=== PATIENT | male | born 1975 | race Caucasian/White ===

== ENCOUNTER 2024-03-17 11:14 | Inpatient (IN) | payer OTHER ==
[2024-03-17 11:27] VITALS: BMI 20.2
[2024-03-17 15:04] LABS: BASO % 1.2 % (0-2.0); EOS % 0.8 % (0-4.5); HEMATOCRIT 18.9 % (35.4-49); LYMPH % 15.2 % (8-40); MCH 28.2 pg (25.7-33.7); MCHC 33.1 g/dl (32.0-35.9); MEAN CELL VOLUME 85.3 fl (80-96); MEAN PLT VOLUME 6.9 fl (7.5-11.1); MONO % 6.6 % (3.8-10.2); NEUT % 76.2 % (42.8-82.8); PLATELET COUNT 656 10^3/uL (134-434); RBC 2.22 M/mm3 (4.00-5.60); RDW 16.8 % (11.9-15.9)
[2024-03-17 15:09] LABS: VENOUS BASE EXCESS -2.4 mmol/L (-2-2); VENOUS O2 SATURATION 17.1 % (70-80); VENOUS PCO2 31.3 mmHg (38-52); VENOUS PH 7.455 (7.310-7.410)
[2024-03-17 15:11] LABS: INR 1.18 (0.83-1.09); PROTHROMBIN TIME (PATIENT) 13.5 SEC (9.7-13.0)
[2024-03-17 15:12] LABS: HEMOGLOBIN 6.3 GM/dL (11.7-16.9)
[2024-03-17 15:14] LABS: ACTIVATED PTT 25.5 SECONDS (25.2-36.5)
[2024-03-17 15:19] LABS: POTASSIUM 4.3 mmol/L (3.5-5.1)
[2024-03-17 15:21] LABS: CALCIUM 8.4 mg/dL (8.5-10.1)
[2024-03-17 15:22] LABS: ALBUMIN 2.8 g/dl (3.4-5.0); BLOOD UREA NITROGEN 17.5 mg/dL (7-18); MAGNESIUM 2.7 mg/dL (1.8-2.4)
[2024-03-17 15:25] LABS: CREATININE 1.1 mg/dL (0.55-1.3)
[2024-03-17 15:26] LABS: BILIRUBIN,TOTAL 1.4 mg/dL (0.2-1); TOT PROT 7.1 g/dl (6.4-8.2)
[2024-03-17 15:29] LABS: N-TERMINAL BNP 282.2 pg/ml (5-125)
[2024-03-17] MEDS ORDERED: ACETAMINOPHEN 500 MG TABLET (FP) ONE (18:20)
[2024-03-17] MEDS: ACETAMINOPHEN 500 MG TABLET (FP) PO ONE (18:24)
[2024-03-17 19:26] LABS: PH,URINE 5.5 (5.0-8.0); URINE APPEARANCE CLEAR; URINE BILIRUBIN NEGATIVE (NEGATIVE); URINE COLOR DK YELLOW; URINE GLUCOSE (UA) TRACE (NEGATIVE); URINE KETONE NEGATIVE (NEGATIVE); URINE LEUK ESTERASE NEGATIVE (NEGATIVE); URINE NITRITE NEGATIVE (NEGATIVE); URINE PROTEIN NEGATIVE (NEGATIVE)
[2024-03-18 00:10] LABS: BILIRUBIN,DIRECT 0.4 mg/dL (0.0-0.2)
[2024-03-18] MEDS: POLYETHYLENE GLYCOL (HEALTHYLAX) 3350 17 GM PACKET PO SCH (01:42)
[2024-03-18] MEDS: LACTATED RINGERS SOLUTION 1,000 ML/1,000 ML INFUS.BAG IV SCH (01:42)
[2024-03-18] MEDS ORDERED: ACETAMINOPHEN 1000 MG/100 ML BAG IVPB PRN (01:58)
[2024-03-18] MEDS: MINERAL OIL ENEMA 133 ML ENEMA RC ONE (02:57)
[2024-03-18 09:47] LABS: EOS % 2.8 % (0-4.5); HEMATOCRIT 22.1 % (35.4-49); HEMOGLOBIN 7.5 GM/dL (11.7-16.9); LYMPH % 20.2 % (8-40); MCH 28.7 pg (25.7-33.7); MCHC 33.8 g/dl (32.0-35.9); MEAN CELL VOLUME 84.9 fl (80-96); MEAN PLT VOLUME 6.9 fl (7.5-11.1); MONO % 5.8 % (3.8-10.2); NEUT % 69.8 % (42.8-82.8); PLATELET COUNT 533 10^3/uL (134-434); RDW 16.4 % (11.9-15.9); WHITE BLOOD COUNT 5.3 K/mm3 (4.0-10.0)
[2024-03-18 09:48] LABS: BASO % 1.4 % (0-2.0)
[2024-03-18] MEDS ORDERED: CEFTRIAXONE 1 GM in DEXTROSE 5%-WATER - 50 ML IVPB SCH (10:00)
[2024-03-18 10:02] LABS: RETICULOCYTES 7.93 % (0.5-1.5)
[2024-03-18 10:07] LABS: POTASSIUM 4.3 mmol/L (3.5-5.1)
[2024-03-18 10:21] LABS: BLOOD UREA NITROGEN 16.6 mg/dL (7-18)
[2024-03-18 10:22] LABS: ALBUMIN 2.6 g/dl (3.4-5.0)
[2024-03-18 10:23] LABS: CALCIUM 8.1 mg/dL (8.5-10.1); MAGNESIUM 2.7 mg/dL (1.8-2.4)
[2024-03-18 10:24] LABS: PHOSPHOROUS 2.7 mg/dL (2.5-4.9)
[2024-03-18 10:26] LABS: BILIRUBIN,TOTAL 1.9 mg/dL (0.2-1)
[2024-03-18 10:27] LABS: CREATININE 0.9 mg/dL (0.55-1.3)
[2024-03-18 10:32] LABS: TOT PROT 6.6 g/dl (6.4-8.2)
[2024-03-18] MEDS: TAMSULOSIN HCL 0.4 MG CAP PO SCH (11:50)
[2024-03-18] MEDS: MINERAL OIL ENEMA 133 ML ENEMA RC SCH (11:50)
[2024-03-18] MEDS: CEFTRIAXONE 1 GM in DEXTROSE 5%-WATER - 50 ML IVPB SCH (13:01)
[2024-03-18] MEDS: CEFAZOLIN SODIUM 2 GM in DEXTROSE 5%-WATER 100 ML IVPB SCH (13:02)
[2024-03-18 13:23] LABS: BILIRUBIN,DIRECT 0.4 mg/dL (0.0-0.2)
[2024-03-18] MEDS: MAGNESIUM CITRATE 300 ML BOTTLE PO ONE (13:28)
[2024-03-18 19:23] LABS: EPI CELLS 8 /uL (0-25.1); HYALINE CASTS 1 /uL (0-3.1); URINE APPEARANCE CLEAR; URINE BACTERIA 10 /uL (0-1359); URINE BILIRUBIN NEGATIVE (NEGATIVE); URINE COLOR DK YELLOW; URINE GLUCOSE (UA) TRACE (NEGATIVE); URINE KETONE TRACE (NEGATIVE); URINE LEUK ESTERASE NEGATIVE (NEGATIVE); URINE NITRITE NEGATIVE (NEGATIVE); URINE PROTEIN 1+ (NEGATIVE); URINE RBC 256 /uL (0-23.9); URINE WBC 20 /uL (0-25.8)
[2024-03-19 09:26] LABS: HEMATOCRIT 20.7 % (35.4-49); MCH 28.1 pg (25.7-33.7); MCHC 32.7 g/dl (32.0-35.9); MEAN CELL VOLUME 85.7 fl (80-96); MEAN PLT VOLUME 7.1 fl (7.5-11.1); PLATELET COUNT 489 10^3/uL (134-434); RBC 2.42 M/mm3 (4.00-5.60); RDW 16.6 % (11.9-15.9); WHITE BLOOD COUNT 5.9 K/mm3 (4.0-10.0)
[2024-03-19 09:43] LABS: HEMOGLOBIN 6.8 GM/dL (11.7-16.9)
[2024-03-19 09:54] LABS: POTASSIUM 4.6 mmol/L (3.5-5.1)
[2024-03-19 09:57] LABS: BILIRUBIN,DIRECT 0.3 mg/dL (0.0-0.2)
[2024-03-19 09:59] LABS: ALBUMIN 2.5 g/dl (3.4-5.0); BLOOD UREA NITROGEN 18.1 mg/dL (7-18); CALCIUM 7.9 mg/dL (8.5-10.1)
[2024-03-19 10:03] LABS: TOT PROT 6.3 g/dl (6.4-8.2)
[2024-03-19 14:22] LABS: ANISOCYTOSIS 0; MACROCYTOSIS 0
[2024-03-20 09:59] LABS: HEMATOCRIT 25.3 % (35.4-49); HEMOGLOBIN 8.5 GM/dL (11.7-16.9); MCHC 33.5 g/dl (32.0-35.9); MEAN CELL VOLUME 86.7 fl (80-96); MEAN PLT VOLUME 6.9 fl (7.5-11.1); PLATELET COUNT 457 10^3/uL (134-434); RBC 2.92 M/mm3 (4.00-5.60); RDW 16.2 % (11.9-15.9); WHITE BLOOD COUNT 5.1 K/mm3 (4.0-10.0)
[2024-03-20 10:48] LABS: ALBUMIN 2.6 g/dl (3.4-5.0); BLOOD UREA NITROGEN 13.8 mg/dL (7-18); CALCIUM 8.4 mg/dL (8.5-10.1)
[2024-03-20 10:54] LABS: BILIRUBIN,TOTAL 1.2 mg/dL (0.2-1); TOT PROT 6.7 g/dl (6.4-8.2)
[2024-03-20] MEDS: IRON SUCROSE INJECTION 200 MG in SODIUM CHLORIDE 100 ML IVPB ONE (14:05)
[2024-03-21 09:38] LABS: HEMATOCRIT 27.5 % (35.4-49); HEMOGLOBIN 9.2 GM/dL (11.7-16.9); MCH 29.4 pg (25.7-33.7); MCHC 33.4 g/dl (32.0-35.9); MEAN CELL VOLUME 87.9 fl (80-96); MEAN PLT VOLUME 6.8 fl (7.5-11.1); PLATELET COUNT 453 10^3/uL (134-434); RBC 3.13 M/mm3 (4.00-5.60); RDW 16.8 % (11.9-15.9); WHITE BLOOD COUNT 4.2 K/mm3 (4.0-10.0)
[2024-03-21 09:43] LABS: INR 1.1 (0.83-1.09); PROTHROMBIN TIME (PATIENT) 12.6 SEC (9.7-13.0)
[2024-03-21 09:46] LABS: ACTIVATED PTT 27.1 SECONDS (25.2-36.5)
[2024-03-21 10:04] LABS: CALCIUM 8.2 mg/dL (8.5-10.1)
[2024-03-21 10:05] LABS: ALBUMIN 2.6 g/dl (3.4-5.0); BLOOD UREA NITROGEN 11.7 mg/dL (7-18)
[2024-03-21 10:08] LABS: CREATININE 0.9 mg/dL (0.55-1.3)
[2024-03-21 10:10] LABS: BILIRUBIN,TOTAL 1.4 mg/dL (0.2-1); TOT PROT 6.5 g/dl (6.4-8.2)
[2024-03-22 08:59] LABS: HEMATOCRIT 27.5 % (35.4-49); HEMOGLOBIN 9.2 GM/dL (11.7-16.9); MCH 30.1 pg (25.7-33.7); MCHC 33.6 g/dl (32.0-35.9); MEAN CELL VOLUME 89.5 fl (80-96); MEAN PLT VOLUME 6.7 fl (7.5-11.1); PLATELET COUNT 472 10^3/uL (134-434); RBC 3.07 M/mm3 (4.00-5.60); RDW 17.8 % (11.9-15.9); WHITE BLOOD COUNT 4.5 K/mm3 (4.0-10.0)
[2024-03-22 09:20] LABS: POTASSIUM 4.1 mmol/L (3.5-5.1)
[2024-03-22 09:28] LABS: CREATININE 0.9 mg/dL (0.55-1.3)
[2024-03-22 09:29] LABS: ALBUMIN 2.7 g/dl (3.4-5.0); BLOOD UREA NITROGEN 13.8 mg/dL (7-18)
[2024-03-22 09:31] LABS: BILIRUBIN,TOTAL 1.1 mg/dL (0.2-1); TOT PROT 6.5 g/dl (6.4-8.2)
[2024-03-22 09:32] LABS: CALCIUM 8.5 mg/dL (8.5-10.1)
[2024-03-22 09:33] LABS: BILIRUBIN,DIRECT 0.3 mg/dL (0.0-0.2)
[2024-03-22] MEDS: SENNOSIDES 8.8 MG/5 ML SYRUP PO ONE (11:35)
[2024-03-22 17:09] LABS: FREE KAPPA,SERUM 47.1 mg/L (3.3-19.4)
[2024-03-22] MEDS: SENNOSIDES 8.8 MG/5 ML SYRUP PO SCH (23:33)
[2024-03-23] MEDS: BISACODYL 5 MG TABLET.DR (FP) PO ONE (17:01)
[2024-03-23] MEDS: PEG 3350/NA SULF BICARB CL/KCL 4000 ML SOLN.RECON PO ONE (17:47)
[2024-03-24 09:00] LABS: HEMOGLOBIN 9.7 GM/dL (11.7-16.9); MCHC 33.3 g/dl (32.0-35.9); MEAN CELL VOLUME 90.1 fl (80-96); MEAN PLT VOLUME 6.6 fl (7.5-11.1); PLATELET COUNT 434 10^3/uL (134-434); RBC 3.22 M/mm3 (4.00-5.60); RDW 19.5 % (11.9-15.9); WHITE BLOOD COUNT 5.2 K/mm3 (4.0-10.0)
[2024-03-24 09:11] LABS: INR 1.21 (0.83-1.09); PROTHROMBIN TIME (PATIENT) 13.6 SEC (9.7-13.0)
[2024-03-24 09:26] LABS: POTASSIUM 3.9 mmol/L (3.5-5.1)
[2024-03-24 09:29] LABS: ALBUMIN 2.7 g/dl (3.4-5.0); BLOOD UREA NITROGEN 13.3 mg/dL (7-18); CALCIUM 8.6 mg/dL (8.5-10.1); MAGNESIUM 2.4 mg/dL (1.8-2.4)
[2024-03-24 09:32] LABS: CREATININE 0.9 mg/dL (0.55-1.3)
[2024-03-24 09:34] LABS: BILIRUBIN,TOTAL 1.2 mg/dL (0.2-1); TOT PROT 6.4 g/dl (6.4-8.2)
[2024-03-24 09:53] LABS: HELMET CELLS 0; HOWELL-JOLLY BODIES 0; MACROCYTOSIS 0; OVALOCYTE 0; ROULEAU 0; SICKELED CELLS 0; TARGET CELLS 0; TEAR DROP CELLS 0; TOXIC GRANULATION 0
[2024-03-24 09:56] LABS: ANISOCYTOSIS 1+
[2024-03-24 15:33] VITALS: RESP 18
[2024-03-24 17:06] LABS: IG A QN SERUM. 403 mg/dL (90-386)
[2024-03-25 11:13] LABS: BASO % 0.6 % (0-2.0); EOS % 2.2 % (0-4.5); HEMATOCRIT 32.7 % (35.4-49); LYMPH % 20.7 % (8-40); MCH 29.8 pg (25.7-33.7); MCHC 33.7 g/dl (32.0-35.9); MEAN CELL VOLUME 88.4 fl (80-96); MEAN PLT VOLUME 6.8 fl (7.5-11.1); MONO % 6.5 % (3.8-10.2); PLATELET COUNT 478 10^3/uL (134-434); RBC 3.69 M/mm3 (4.00-5.60); RDW 18.6 % (11.9-15.9); WHITE BLOOD COUNT 5.8 K/mm3 (4.0-10.0)
[2024-03-25 11:43] LABS: POTASSIUM 3.6 mmol/L (3.5-5.1)
[2024-03-25 11:46] LABS: BLOOD UREA NITROGEN 12.7 mg/dL (7-18); CALCIUM 8.5 mg/dL (8.5-10.1)
[2024-03-25 11:50] LABS: CREATININE 0.9 mg/dL (0.55-1.3)
[2024-03-25 11:51] LABS: BILIRUBIN,TOTAL 1.5 mg/dL (0.2-1); TOT PROT 7.2 g/dl (6.4-8.2)
[2024-03-25 13:07] VITALS: BP 110/69; PULSE 72; TEMP 98.2
== END 2024-03-25 15:27 | disposition home or self-care (01) | DRG 663 ==
LOC: JER 11:14 → JERBED 23:24 → J5S 03-18 06:20
PROVIDERS: ADMIT Internal Medicine; ATTEND Internal Medicine
PROC: 30233N1 Transfusion of Nonautologous Red Blood Cells into Peripheral Vein, Percutaneous Approach (ICD-10-PCS; principal; 2024-03-17)
PROC: 0DJD8ZZ Inspection of Lower Intestinal Tract, Via Natural or Artificial Opening Endoscopic (ICD-10-PCS; 2024-03-24)
PROC: 0DB98ZX Excision of Duodenum, Via Natural or Artificial Opening Endoscopic, Diagnostic (ICD-10-PCS; 2024-03-24)
PROC: 0DB68ZX Excision of Stomach, Via Natural or Artificial Opening Endoscopic, Diagnostic (ICD-10-PCS; 2024-03-24)
DX: D50.9 Iron deficiency anemia, unspecified (principal); L03.115 Cellulitis of right lower limb; K59.09 Other constipation; N40.0 Benign prostatic hyperplasia without lower urinary tract symptoms; R33.9 Retention of urine, unspecified; K64.8 Other hemorrhoids; K29.50 Unspecified chronic gastritis without bleeding; E44.0 Moderate protein-calorie malnutrition; Z68.25 Body mass index [BMI] 25.0-25.9, adult
CPT/HCPCS: 0241U-QW; 36415; 36430; 71045-TC-FY; 73562-TC-RT-FY; 73701-TC-RT; 74177-TC; 76705-TC; 80048; 80053; 80076; 81003; 82248; 82272; 82607; 82728; 82746; 82784; 82803; 83010; 83540; 83550; 83615; 83735; 83880; 83883; 84100; 84155; 84165; 84484; 85025; 85027; 85045; 85384; 85610; 85730; 86704; 86803; 86850; 86900; 86901; 86922; 87040; 87086; 87340; 87517; 88305-TC; 93005; 93010; 93971-TC; 97116-GP; 97161-GP; 99285-25; J1756; P9038; P9058